=== PATIENT | female | born 1985 | race Caucasian/White ===

== ENCOUNTER 2019-04-19 16:56 | Emergency (ER) | payer OTHER ==
--- NOTE | 2019-04-19 17:13 | PDOC ---
Rapid Medical Evaluation Time Seen by Provider: 04/19/19 17:09 Medical Evaluation: 04/19/19 17:10 CC: sent by PMD to r/o [facility]. (-)rapid strep on Friday at PMD PE: Right peritonsillar swelling noted. Pt reports spontaneous drainage. No drooling. Uvula is midline. Orders: nothing Patient to proceed to ED for evaluation. Discharge Disposition - Diagnosis Throat symptom - Referrals - Patient Instructions - Post Discharge Activity
[2019-04-19 17:16] VITALS: BP 135/85; PULSE 87; TEMP 99; BMI 36.5
--- NOTE | 2019-04-19 18:18 | PDOC ---
History of Present Illness - General Chief Complaint: Sore Throat Stated Complaint: SENT BY DOCTOR Time Seen by Provider: 04/19/19 17:09 - History of Present Illness Initial Comments: 04/19/19 18:13 34 y/o F w/o CM presents for evaluation of sore throat. seen by her PCP and placed on motrin because of a negative strep test in the office she continues to have pain. ongoing pain today her PCP phoned in ABX which she did not start yet Past History - Past Medical History Allergies/Adverse Reactions: Allergies Allergy/AdvReac Type Severity Reaction Status Date / Time No Known Drug Allergies Allergy Verified 04/19/19 17:10 Home Medications: Ambulatory Orders Clindamycin [Cleocin -] 150 mg PO Q8H #21 capsule 04/19/19 Ibuprofen 600 mg PO Q6H PRN 04/19/19 Methylprednisolone [Medrol Dose Erik] 4 mg PO ASDIR #21 tablet 04/19/19 - Psycho Social/Smoking Cessation Hx Smoking History: Never smoked Have you smoked in the past 12 months: No Information on smoking cessation initiated: No Hx Alcohol Use: No Drug/Substance Use Hx: No Review of Systems - Review of Systems Constitutional: No: Fever HEENTM: Yes: Throat Pain, Throat Swelling *Physical Exam - Vital Signs Last Vital Signs Temp Pulse Resp BP Pulse Ox 99 F 87 18 135/85 97 04/19/19 17:11 04/19/19 17:11 04/19/19 17:11 04/19/19 17:11 04/19/19 17:11 - Physical Exam General Appearance: Yes: Nourished, Appropriately Dressed. No: Apparent Distress HEENT: positive: Normal ENT Inspection, Normal Voice, Symmetrical, TMs Normal, Tonsillar Erythema, Other (R sided peritonsillar swelling with erythema and exudate. ). negative: Pharynx Normal Respiratory/Chest: positive: Lungs Clear Cardiovascular: positive: S1, S2 Musculoskeletal: positive: Normal Inspection Extremity: positive: Normal Inspection, Normal Range of Motion Integumentary: positive: Normal Color, Dry, Warm Neurologic: positive: lotus notes developer II-XII NML intact ED Treatment Course - LABORATORY CBC & Chemistry Diagram: 04/19/19 18:00 04/19/19 18:00 Medical Decision Making - Medical Decision Making 04/19/19 19:35 CT reviewed with ER attending will d/c home with clinda and medrol does pack ENT f/u Discharge - Discharge Information Problems reviewed: Yes Clinical Impression/Diagnosis: Throat symptom, Acute pharyngitis Condition: Stable Disposition: HOME - Admission No - Additional Discharge Information Prescriptions: Clindamycin [Cleocin -] 150 mg PO Q8H #21 capsule Methylprednisolone [Medrol Dose Erik] 4 mg PO ASDIR #21 tablet - Follow up/Referral Referrals: Jah Rojas MD [Primary Care Provider] - Quan Llanos MD [Staff Physician] - - Patient Discharge Instructions Additional Instructions: Without fail, please follow up with ENT in 1-2 days for further evaluation and treatment options. Return to the emergency room should symptoms worsen. Pleaes take the Clindamycin and Medrol Dose Pack as directed. Start the Clindamycin tonight and the medrol dose pack in the morning. - Post Discharge Activity
[2019-04-19] MEDS ORDERED: methylPREDNISolone NA SUCC 125 MG/2 ML VIAL IVPB ONE (18:26)
[2019-04-19] MEDS ORDERED: methylPREDNISolone NA SUCC 125 MG/2 ML VIAL ONE (18:35)
[2019-04-19 18:40] LABS: BASO % 0.9 % (0-2.0); EOS % 2.4 % (0-4.5); HEMATOCRIT 39.3 % (32.4-45.2); HEMOGLOBIN 12.6 GM/dL (10.7-15.3); LYMPH % 27.2 % (8-40); MCH 27.2 pg (25.7-33.7); MCHC 32.1 g/dl (32.0-36.0); MEAN CELL VOLUME 84.8 fl (80-96); MEAN PLT VOLUME 8.7 fl (7.5-11.1); MONO % 7.8 % (3.8-10.2); NEUT % 61.7 % (42.8-82.8); PLATELET COUNT 332 K/MM3 (134-434); RBC 4.64 M/mm3 (3.60-5.2); RDW 13.8 % (11.6-15.6); WHITE BLOOD COUNT 8.3 K/mm3 (4.0-10.0)
[2019-04-19 19:18] LABS: ALBUMIN 3.8 g/dl (3.4-5.0); BILIRUBIN,TOTAL 0.2 mg/dL (0.2-1); BLOOD UREA NITROGEN 8.2 mg/dL (7-18); CALCIUM 8.9 mg/dL (8.5-10.1); CREATININE 0.8 mg/dL (0.55-1.3); POTASSIUM 4.2 mmol/L (3.5-5.1); TOT PROT 7.4 g/dl (6.4-8.2)
== END 2019-04-19 20:02 | disposition home or self-care (01) ==
LOC: JERFT 16:56 → JER 16:56 → JERFT 20:02
PROC: 3E0333Z Introduction of Anti-inflammatory into Peripheral Vein, Percutaneous Approach (ICD-10-PCS; principal; 2019-04-19)
DX: J02.9 Acute pharyngitis, unspecified (principal)
CPT/HCPCS: 36415; 70490-TC; 80053; 84703; 85025; 87070; 87880; 96374; 99282-25

== ENCOUNTER 2020-02-22 07:13 | Emergency (ER) | payer OTHER ==
--- NOTE | 2020-02-22 07:27 | PDOC ---
Rapid Medical Evaluation Chief Complaint: Pain, Acute Time Seen by Provider: 02/22/20 07:20 Medical Evaluation: Allergies Allergy/AdvReac Type Severity Reaction Status Date / Time No Known Drug Allergies Allergy Verified 02/22/20 07:19 Vital Signs Temp Pulse Resp BP Pulse Ox 98.6 F 89 20 155/95 97 02/22/20 07:19 02/22/20 07:19 02/22/20 07:19 02/22/20 07:19 02/22/20 07:19 02/22/20 07:27 I have performed a brief in-person evaluation of this patient. The patient presents with a chief complaint of: h/o colitis, here w/ abd pain and bloody diarrhea since last night. No n/v/f/c Pertinent physical exam findings:well yesenia, stable I have ordered the following:labs The patient will proceed to the ED for further evaluation. Discharge Disposition - Diagnosis Diarrhea Qualifiers: Diarrhea type: unspecified type Qualified Code(s): R19.7 - Diarrhea, unspecified - Referrals - Patient Instructions - Post Discharge Activity
[2020-02-22 07:33] VITALS: BMI 38.0
[2020-02-22 08:03] LABS: BASO % 0.7 % (0-2.0); HEMATOCRIT 38.8 % (32.4-45.2); HEMOGLOBIN 12.2 GM/dL (10.7-15.3); LYMPH % 20.8 % (8-40); MCHC 31.3 g/dl (32.0-36.0); MEAN CELL VOLUME 83.1 fl (80-96); MEAN PLT VOLUME 8.6 fl (7.5-11.1); MONO % 8.4 % (3.8-10.2); NEUT % 69.1 % (42.8-82.8); PLATELET COUNT 368 K/MM3 (134-434); RBC 4.67 M/mm3 (3.60-5.2); RDW 15.3 % (11.6-15.6); WHITE BLOOD COUNT 11.5 K/mm3 (4.0-10.0)
[2020-02-22 08:25] LABS: EPI CELLS 8 /uL (0-25.1); HYALINE CASTS 0 /uL (0-3.1); PH,URINE 6.5 (5.0-8.0); URINE APPEARANCE CLEAR; URINE BACTERIA 283 /uL (0-1359); URINE BILIRUBIN NEGATIVE (NEGATIVE); URINE COLOR YELLOW; URINE GLUCOSE (UA) NEGATIVE (NEGATIVE); URINE KETONE NEGATIVE (NEGATIVE); URINE LEUK ESTERASE NEGATIVE (NEGATIVE); URINE NITRITE NEGATIVE (NEGATIVE); URINE PROTEIN NEGATIVE (NEGATIVE); URINE RBC 52 /uL (0-23.9); URINE UROBILINOGEN 0.2 mg/dL (0.2-1.0); URINE WBC 2 /uL (0-25.8)
[2020-02-22 08:36] LABS: ALBUMIN 3.7 g/dl (3.4-5.0); BILIRUBIN,TOTAL 0.3 mg/dL (0.2-1); BLOOD UREA NITROGEN 9.9 mg/dL (7-18); CREATININE 0.7 mg/dL (0.55-1.3); POTASSIUM 4.5 mmol/L (3.5-5.1); TOT PROT 8.1 g/dl (6.4-8.2)
[2020-02-22 08:43] LABS: HCG,QUALITATIVE URINE NEGATIVE
--- NOTE | 2020-02-22 09:11 | PDOC ---
Attending Attestation - Resident Resident Name: Jimmy Goldsmith - ED Attending Attestation I have performed the following: I have examined & evaluated the patient, The case was reviewed & discussed with the resident, I agree w/resident's findings & plan - HPI HPI: 02/22/20 09:04 34y/o F h/o IBS, c-scopy in the past reportedly normal a few years ago, treated for colitis of unclear etiology about 2y ago, in [facility] until midnight, when developed hourly episodes of loose stool with abd cramping, then with slight blood at the end. h/o brbpr in setting of constipation, never diagnosed with IBD. no recent abx, no travel. some polyuria but dysuria/hematuria. now with residual abd cramping, last diarrhea at 5:30am. - Physicial Exam PE: 02/22/20 09:16 vss, seated comfortably in chair no jaundice/pallor herat regular, lungs clear abd obese, soft, nd. tender lower abdomen without guarding, slight rebound suprapubic region. no cvat. no rash - Medical Decision Making 02/22/20 09:17 34-year-old female with history of IBS, episode of colitis treated with antibiotics 2 years ago, reportedly normal colonoscopy in the past presents now with diarrhea over the last 8 hours with abdominal cramping, hemodynamically stable here without peritoneal findings on examination but with some residual discomfort. Question recurrence of colitis, question enteritis, possible UTI. Labs, urinalysis CT of the abdomen and pelvis IV fluids Reassess 02/22/20 10:28 wbc wnl, labs wnl ua with blood but no infection ctap without colitis presumed enteritis, stable here without additional episodes. abd remains non- peritoneal agrees with d/c plan, GI f/u, understands return criteria Discharge - Discharge Information Problems reviewed: Yes Clinical Impression/Diagnosis: Lower abdominal pain Diarrhea Qualifiers: Diarrhea type: unspecified type Qualified Code(s): R19.7 - Diarrhea, unspecified - Follow up/Referral Referrals: Jah Rojas MD [Primary Care Provider] - - Patient Discharge Instructions - Post Discharge Activity
--- NOTE | 2020-02-22 09:17 | PDOC ---
History of Present Illness - General Chief Complaint: Pain, Acute Stated Complaint: ABDOMINAL PAIN Time Seen by Provider: 02/22/20 07:20 - History of Present Illness Initial Comments: 02/22/20 09:10 34 F with hx of colitist presented to the ED due to bloody diarrhea. She had acute abdominal pain and bloody dirrhea this morning. She is on her menstrual period right now . Abdominal pain localized around the suprapubic region, pain is crampy, on and off. She also had 6 episode of diarrhea , last one associated with one tea spoon of bright red blood, also endorse tenesmus. She denies eating uncooked beef, or weird food beside [facility], denies recent sick contact. For her colitist problem, she went to [facility] years ago for similar problem, there , they diagnosed her with colitist and admitted her for 4 days. Course of admition was antibiotics, and steroids. She also had one colonscopy prior to [facility] visit for her familiar colon cancer problem and constant constipation, and it was negative according to her. She denies fever, chill, vomiting, chest pain, anemia, dysuria, hematuria, but endorse nausea, and crampy abdominal pain, and bloody stool. PMHX: as in HPI PSHX: tonsillectomy Meds: none Allergies: none Tob: none Etoh: occasionally Rec drugs: none PCP: Noam GONZALEZ GENERAL/CONSTITUTIONAL: No fever or chills. No weakness. HEAD, EYES, EARS, NOSE AND THROAT: No change in vision. No ear pain or di scharge. No sore throat. CARDIOVASCULAR: No chest pain or shortness of breath RESPIRATORY: No cough, wheezing, or hemoptysis. GASTROINTESTINAL: +nausea, no vomiting, +diarrhea , no constipation. GENITOURINARY: No dysuria, +increase frequency, no change in urination. MUSCULOSKELETAL: No joint or muscle swelling or pain. No neck or back pain. SKIN: No rash NEUROLOGIC: No headache, vertigo, loss of consciousness, or change in strength/sensation. ENDOCRINE: No increased thirst. +weight gain over one year. HEMATOLOGIC/LYMPHATIC: No anemia, easy bleeding, or history of blood clots. ALLERGIC/IMMUNOLOGIC: No hives or skin allergy. PE GENERAL: Awake, alert, and fully oriented, in no acute distress; obese HEAD: No signs of trauma, normocephalic, atraumatic EYES: PERRLA, EOMI, sclera anicteric, conjunctiva clear ENT: Auricles normal inspection, hearing grossly normal, nares patent, oropharynx clear without exudates. Moist mucosa NECK: Normal ROM, supple, no lymphadenopathy, JVD, or masses LUNGS: No distress, speaks full sentences, clear to auscultation bilaterally HEART: Regular rate and rhythm, normal S1 and S2, no murmurs, rubs or gallops, peripheral pulses normal and equal bilaterally. ABDOMEN: Soft, normoactive bowel sounds. No guarding, no rebound. No masses, mild tenderness on suprapubic area. negative cva tenderness bilat EXTREMITIES : Normal inspection, Normal range of motion, no edema. No clubbing or cyanosis. NEUROLOGICAL: Cranial nerves II through XII grossly intact. Normal speech, normal gait, no focal sensorimotor deficits SKIN: Warm, Dry, normal turgor, no rashes or lesions noted Past History - Medical History Allergies/Adverse Reactions: Allergies Allergy/AdvReac Type Severity Reaction Status Date / Time No Known Drug Allergies Allergy Verified 02/22/20 07:19 Home Medications: Ambulatory Orders NK [No Known Home Medication] 02/22/20 COPD: No GI Disorders: Yes (COLITIS) - Reproductive History Is Patient Now?: No - Immunization History Immunization Up to Date: Yes - Psycho-Social/Smoking History Smoking History: Never smoked Have you smoked in the past 12 months: No - Substance Abuse Hx (Audit-C & DAST Scrn) How often the patient has a drink containing alcohol: Monthly or less Score: In Men: 4 or > Positive; In Women: 3 or > Positive: 1 Screen Result (Pos requires Nsg. Audit-10AR): Negative In the last yr the pt used illegal drug/Rx for NonMed reason: No Score: Yes response is considered Positive: 0 Screen Result (Positive result requires Nsg. DAST-10): Negative *Physical Exam - Vital Signs Last Vital Signs Temp Pulse Resp BP Pulse Ox 98.6 F 89 20 155/95 97 02/22/20 07:19 02/22/20 07:19 02/22/20 07:19 02/22/20 07:19 02/22/20 07:19 ED Treatment Course - LABORATORY CBC & Chemistry Diagram: 02/22/20 07:20 02/22/20 07:20 - ADDITIONAL ORDERS Additional order review: Laboratory Results 02/22/20 02/22/20 07:20 07:20 Sodium 136 Potassium 4.5 Chloride 104 Carbon Dioxide 24 Anion Gap 8 BUN 9.9 Creatinine 0.7 Est GFR (CKD-EPI)AfAm 131.94 Est GFR (CKD-EPI)NonAf 113.84 Random Glucose 96 Calcium 9.0 Total Bilirubin 0.3 AST 21 ALT 26 Alkaline Phosphatase 92 Total Protein 8.1 Albumin 3.7 Urine Color Yellow Urine Appearance Clear Urine pH 6.5 Ur Specific [place] 1.020 Urine Protein Negative Urine Glucose (UA) Negative Urine Ketones Negative Urine Blood 1+ H Urine Nitrite Negative Urine Bilirubin Negative Urine Urobilinogen 0.2 Ur Leukocyte Esterase Negative Urine WBC (Auto) 2 Urine RBC (Auto) 52 Urine Casts (Auto) 0 U Epithel Cells (Auto) 8 Urine Bacteria (Auto) 283 Urine HCG, Qual Negative 02/22/20 07:20 RBC 4.67 MCV 83.1 MCHC 31.3 L RDW 15.3 D MPV 8.6 Neutrophils % 69.1 Lymphocytes % 20.8 D Monocytes % 8.4 Eosinophils % 1.0 Basophils % 0.7 - RADIOLOGY Radiology Studies Ordered: Category Date Time Status ABDOMEN & PELVIS CT WITH CONTR [CT] Stat CT Scan 02/22/20 08:41 Ordered Medical Decision Making - Medical Decision Making 02/22/20 09:17 34 F with hx of colitist presented to the ED with abdominal pain, and bloody diarrhea. DDX: toxic colitist vs other kinds of colitist : IBD, necrotizing colitist . Plan: CBC, CMP, ESR, CRP, CT scan with contrast, hCG 02/22/20 09:26 Lab came back with elevated WBC of 11, UA show bacteria of 282, negative nitrile, negative leukoesterase, 50s RBC; however, no dysuria,no discharge. 02/22/20 10:38 CT scan are negative. Patients will be discharged home and encouraged to follow up with PCP. 02/22/20 10:44 02/22/20 10:46 Discharge - Discharge Information Problems reviewed: Yes Clinical Impression/Diagnosis: Lower abdominal pain, Acute abdominal pain Diarrhea Qualifiers: Diarrhea type: unspecified type Qualified Code(s): R19.7 - Diarrhea, unspecified Condition: Good Disposition: HOME - Follow up/Referral Referrals: Jah Rojas MD [Primary Care Provider] - Sukumar Aquino MD [Staff Physician] - - Patient Discharge Instructions Patient Printed Discharge Instructions: Acute Abdominal Pain, DI for Acute Abdomen Additional Instructions: Patient is seen today for acute abdominal pain. Please follow up with our in house gastrointestinal doctor: Dr. Aquino, Dr. Whitman. Please come back here if you have worsening symptoms: nausea, vomiting, bloody diarrhea, dizziness. Please take tylenol if you have pain at home. You have to follow up with your PCP doctor, and call the GI doctors: Dr. Aquino. - Post Discharge Activity
[2020-02-22 11:08] VITALS: BP 126/79; PULSE 79; TEMP 97.9
== END 2020-02-22 11:08 | disposition home or self-care (01) ==
LOC: JER 07:13
DX: R19.7 Diarrhea, unspecified (principal); R10.30 Lower abdominal pain, unspecified
CPT/HCPCS: 36415; 74177-TC; 80053; 81003; 82272; 84703; 85025; 86140; 99284-25; Q9967